=== PATIENT | male | born 1935 | race Caucasian/White ===

== ENCOUNTER 2016-09-21 16:55 | Inpatient (IN) | payer OTHER ==
[~2016-09-21] VITALS: Ht 188 cm; Wt 138.3 kg
--- NOTE | ~2016-09-21 | HC ---
[facility] [place] [address] CONSULTATION Name: CLARISSA JUARES Room #: 445-P ADM IN M.R.#: [id number] Admission: 09/21/16 Attend Phys: Jose Manuel Weeks MD Discharge: Date of : 35 Report #: [id number] THIS REPORT FOR: //name// CC: Shubham Weeks DATE OF SERVICE: 09/24/2016 REASON FOR CONSULTATION: Possible free air seen on chest x-ray. HISTORY OF PRESENT ILLNESS: The patient is an 81-year-old who was admitted for weakness. The patient was sent to the hospital from Dr. Sam's office. He has been noticed to have increased confusion. His took him in because of that, he does have a history of dementia. During the hospitalization, the patient was evaluated and had a chest x-ray performed. The patient had chest x-ray today, it was noted to have possibility of free air on to the right diaphragm. Stat consultation was obtained. As I was coming in, the patient also underwent CT scan. The CT scan report came back with the patient having large colonic air. There was no free air identified. The patient is kind of a poor historian. He is not really hungry. Denies any abdominal pain. PHYSICAL EXAMINATION: GENERAL: The patient is awake, but he mostly keeps his eyes closed. ABDOMEN: Obese and moderately distended. He is soft and nontender. Bowel sounds are present. No guarding or rigidity. No rebound. LABORATORY DATA: Shows normal white count. The patient's CT was reviewed. I agree with the radiologist, distended colon. IMPRESSION AND PLAN: The patient is an 81-year-old with a confusional state. He has a normal white count. His liver function is slightly elevated. The patient had a chest x-ray today that suggested possible free air. I was consulted on stat basis. His CT actually shows distended colon without free air. In comparison to prior CT scan, his colonic distention does not appear to be much different. Probably chronic aerophagia and distention. He does not have any acute abdomen on exam. RECOMMENDATION: The patient is on Pradaxa, and just in case I would go ahead and hold the Pradaxa for tonight. Also keep him n.p.o. on IV fluid. Likely that can be restarted tomorrow. We will follow up and reexamine him. Reglan is ordered and Dulcolax suppository is also ordered get some of his air out. By: 1243 Marcos Mo MD /nt
--- NOTE | ~2016-09-21 | HC ---
[facility] [place] [address] CONSULTATION Name: CLARISSA JUARES Room #: 445-P ADM IN M.R.#: [id number] Admission: 09/21/16 Attend Phys: Jose Manuel Weeks MD Discharge: Date of : 35 Report #: [id number] THIS REPORT FOR: //name// CC: Shubham Weeks HISTORY OF PRESENT ILLNESS: The patient is an 81-year-old male well known to myself. I am asked by Dr. Logan to see the patient. He has a history of permanent atrial fibrillation and apparently was hospitalized last week with some progressive weakness and confusion, but has had some worsening dementia. Unfortunately, he decided to stop all of his medications some weeks ago is my understanding from discussion with Dr. Logna. It looks like now on CAT scan because of a mental status change or at least a worsening condition, there is evidence now of perhaps some embolic issues, and this is actually an MRI, which shows tiny cerebral infarcts consistent with small infarcts due to hypotension or emboli. This well could be due to the AFib and no anticoagulation. He recognizes me in bed; however, believes it is 1972 today and is doing some cognitive issues with speech therapy, he can do multiplications but cannot do pluses. His cardiovascular status appears to be stable. He is in rate-controlled AFib. Blood pressures are stable. He denies chest pain or anginal complaints. He has had some issues with hip and buttock cellulitis most recently and stable coronary artery disease with a remote coronary stent placed to the LAD in 1997, and mild ischemic cardiomyopathy. There have been some mild intermittent heart failure issues, but nothing recent. HOME MEDICATIONS: Had been Pradaxa, Lasix, atenolol 50 b.i.d., simvastatin 40, omeprazole 20. I had stopped krill oil and aspirin on the last visit, which was January of last year. His lipids have been favorable. PAST MEDICAL HISTORY: Positive for coronary artery disease, permanent AFib, anticoagulation. He had been off for some time due to a right groin spontaneous hematoma and esophageal hematomas but had been restarted on the lower dose or on the Pradaxa without issue, peripheral neuropathy, DJD, hypertension, hypercholesterolemia and a colon resection. ALLERGIES: No known drug allergies. REVIEW OF SYSTEMS: Not very helpful here as he is not completely oriented. FAMILY HISTORY: Father did have an infarct at 56 and mother at 50 from cancer. LABORATORY DATA: Sodium 141, potassium 3.7, creatinine 1.0. Total bilirubin 2.4. Troponins were negative on admission. H and H 16 and 48 with a white count 9.7 and platelets 172. [address] [address] CONSULTATION Name: CLARISSA JUARES Room #: 445-P [facility] IN M.R.#: [id number] Admission: 09/21/16 Attend Phys: Jose Manuel Weeks MD Discharge: Date of : 35 Report #: [id number] PHYSICAL EXAMINATION: VITAL SIGNS: Pulses 90s and irregular and blood pressure 136/78. HEENT: Eyes reveal xanthelasmas. Pharynx is clear. NECK: Preserved upstrokes without JVD or bruits. LUNGS: Clear. CARDIOVASCULAR: Irregularly irregular S1, S2. Holosystolic murmur is noted. ABDOMEN: Soft. No HSM or abdominal bruit. EXTREMITIES: There is 1+ edema with venous stasis changes. MUSCULOSKELETAL: Generalized arthritic changes, valgus deformity of the knees. I did not ambulate him. NEUROLOGIC: Nonfocal. Appears more of a confusional issue. He seems to be moving extremities and following some commands, although he does believe as I said 1972. DIAGNOSTIC DATA: Echo Doppler shows LV function to be moderately diminished globally 30%, this has worsened, not clear of the etiology of that. ASSESSMENT: 1. Looks like small embolic or cerebrovascular accident with evidence for small embolic lesions noted. 2. Permanent atrial fibrillation, stopped anticoagulation. 3. Coronary artery disease, stable. 4. Moderate ischemic idiopathic cardiomyopathy, it has been worsening, but no overt heart failure. 5. Peripheral neuropathy. 6. Degenerative joint disease. 7. Obesity. RECOMMENDATIONS AND PLAN: His cardiovascular status is with LV dysfunction; however, he has inability to comprehend exactly the ramification of taking no medications. His is not around. We will place him on fluid restriction; with his LV dysfunction, it will be of some benefit, and anticoagulate here if he is agreeable with this. We would like to discuss the above with Dr. Logan. In my opinion, he should be back on anticoagulation particularly on the fact that he has had what appears to be an embolic event here. Would consider the addition of an ARB, perhaps 50 mg of losartan with his LV dysfunction. Continue with Lasix. We will get more aggressive and go with 40 mg of Lasix daily and add 50 mg of losartan. He is restarted on Pradaxa 150 b.i.d., and I agree with that. We will follow with you. Thank you for allowing me to assist in the care of this patient. I would be interested to discuss the above with his when she does return. By: 1003 23 Devonte Mar MD, FACC /nt
--- NOTE | ~2016-09-21 | D ---
[facility] [place] [address] DISCHARGE SUMMARY Name: CLARISSA JUARES Jd Room #: 445-P [facility]#: [id number] Admission: 09/21/16 Attend Phys: Jose Manuel Weeks MD Discharge: 09/28/16 Date of : 35 Report #: [id number] THIS REPORT FOR: //name// CC: Shubham Weeks FINAL DIAGNOSES: 1. Acute cerebrovascular accident. 2. Cerebrovascular disease. 3. Atrial fibrillation. 4. Cardiomyopathy. 5. Acute encephalopathy due to acute cerebrovascular accident. HOSPITAL COURSE: The patient was admitted from weakness. Initially, there was concern of infection, blood cultures were negative. A CT scan through the emergency room was negative. However, his confusion did not clear. We had initial plans to transfer to a [facility] facility; however, additional workup was indicated, an MRI of the brain revealed remote stroke consistent with cerebrovascular disease, however, there were areas described as "tiny infarcts," scattered which could be consistent with an embolic event related to his underlying atrial fibrillation. The cardiology service followed him, but ultimately decision was made medical treatment. It appeared by reports he had stopped his medication at home several weeks ago. 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 PHYSICAL EXAMINATION: GENERAL: On the day of discharge of the , he was awake and alert, up in the chair. VITAL SIGNS: Stable. LUNGS: Clear. HEART: Regular. ABDOMEN: Soft, normoactive bowel sounds. EXTREMITIES: Showed just trace edema. DISPOSITION: He is being transferred to [facility]. I will refer him to Dr. Tinsley who is a ammonia worker to manage his rehab, signed his transfer medications, he will then follow up with Dr. Walton in 1 month. <ELECTRONICALLY SIGNED> By: David Logan MD 09/29/16 0913 1059 1213 David Logan MD /nt
--- NOTE | ~2016-09-21 | H ---
[facility] [place] [address] HISTORY AND PHYSICAL Name: CLARISSA JUARES Room #: 445-P [facility] IN ..#: [id number] Admission: 09/21/16 Attend Phys: Jose Manuel Weeks MD Discharge: Date of : 35 Report #: [id number] THIS REPORT FOR: //name// CC: Shubham Weeks DATE OF SERVICE: 09/21/2016 CHIEF COMPLAINT: Weakness. HISTORY OF PRESENT ILLNESS: The patient is an 81-year-old gentleman who was admitted to the Emergency Room from the office with weakness. All the history is obtained by reviewing electronic record, he is awake and alert, but pleasantly confused and said he has been feeling fine, is not sure why he is here. His took him to the office yesterday with about 4 days of increasing confusion. She also reported general weakness, while in the office, under assessment he was too weak to get up from the exam stable and EMS was called me and he was taken to the Emergency Room. So far, workup has been relatively unremarkable. PAST MEDICAL HISTORY: Colon cancer treated 1991, hypertension, remote history of myocardial infarction 1993, atrial fibrillation. He apparently been on anticoagulation with Pradaxa but discontinued due to report of an esophageal ulcer 3 weeks ago. FAMILY HISTORY: Noncontributory. SOCIAL HISTORY: He is , lives with his . No known chronic alcohol or tobacco use. ALLERGIES: None. MEDICATIONS: Reports that he was on Protonix, aspirin, Zocor, atenolol, Lactobacillus, but with his reported that he stopped all his medicines about 3 weeks ago. REVIEW OF SYSTEMS: He denies headache, chest pain, shortness of breath, abdominal pain, fever, chills, nausea, vomiting, diarrhea, constipation, dysuria, syncope. OBJECTIVE: VITAL SIGNS: Temperature 36.4, pulse 80, respirations 18, blood pressure 179/96, O2 sat 97% on room air. GENERAL: He is awake and alert, lying in bed, in no distress. LUNGS: Clear with no wheezing. HEART: Irregular. No murmur. [facility] [address] [place] [address] HISTORY AND PHYSICAL Name: CLARISSA JUARES Room #: 445-P [facility] IN [facility]#: [id number] Admission: 09/21/16 Attend Phys: Jose Manuel Weeks MD Discharge: Date of : 35 Report #: [id number] ABDOMEN: Soft, normoactive bowel sounds, no palpable masses, nontender. EXTREMITIES: There is 2+ lower extremity edema, left greater than right. There is some faint pink pale areas, but really no major red open wound or erythema. NEUROLOGIC: Cranial nerves intact. He recognizes he is in the hospital. Global strength about 3/5 throughout. Laboratory and x-ray, CT data were reviewed electronically. ASSESSMENT: 1. Altered mental status. 2. Generalized weakness. 3. Atrial fibrillation. 4. Lower extremity edema. PLAN: He has been ruled out for stroke, cardiac, myocardial infraction, pneumonia and DVT. He does have atrial fibrillation, but stopped all his medications so I have to clarify the status there, but he needs atenolol at least for now and I will resume Lovenox for DVT prophylaxis, therapy referral have been made and we may need to look into a alf rehabilitation. <ELECTRONICALLY SIGNED> By: David Logan MD 09/22/16 1257 0847 0924 David Logan MD /nt
--- NOTE | ~2016-09-21 | D ---
[facility] [place] [address] DISCHARGE SUMMARY Name: CLARISSA JUARES Room #: 445-P [facility] IN ..#: [id number] Admission: 09/21/16 Attend Phys: Jose Manuel Weeks MD Discharge: Date of : 35 Report #: [id number] THIS REPORT FOR: //name// CC: Shubham Weeks FINAL DIAGNOSES: 1. Atrial fibrillation. 2. Lower extremity weakness. 3. Senile debility. 4. Lymphedema. 5. Senile dementia. HOSPITAL COURSE: The patient was admitted from home with weakness. Working diagnosis was infection; however, cultures were negative and urinary tract infection was ruled out. After assessment in reviewing the history, it appears that there is a cognitive dysfunction consistent with dementia, leading to debility and generalized weakness. His could no longer care for him at home, and plans were made for custodial. He was then stopped his home medications previously for unclear reasons, it appeared he was being treated for atrial fibrillation with atenolol and Pradaxa in the past. These medications were continued. PHYSICAL EXAMINATION: VITAL SIGNS: On the day of discharge, his temperature was 36.9, pulse 88, respirations 19, blood pressure 145/84, O2 sat 95% on room air. GENERAL: He was resting in bed, pleasantly confused. LUNGS: Clear. HEART: Irregular. ABDOMEN: Soft and normoactive bowel sounds. EXTREMITIES: 2+ edema, left greater than right. Previous Doppler ultrasound on the legs was negative for DVT. DISPOSITION: He is being transferred to [facility]. I will follow his stay there. DIET AND ACTIVITY: As tolerated. PT, OT, and ST. DISCHARGE MEDICINES: Are atenolol 50 mg, Pradaxa 150 mg b.i.d., and Tylenol. By: 0827 1033 Thomas Kong MD /nt
--- NOTE | ~2016-09-21 | 2DMMODE ---
[facility] [address] [place] [address] 2 D/M-MODE ECHOCARDIOGRAM Name: CLARISSA JUARES Room #: 445-P [facility] IN ..#: [id number] Admission: 09/21/16 Attend Phys: Cecilia Garcia Discharge: Date of : 35 Date of Service: 09/25/16 1507 Report #: [id number] THIS REPORT FOR: //name// APPROVED REPORT Study performed: 09/25/2016 11:12:32 EXAM: Comprehensive 2D, Doppler, and color-flow Echocardiogram Patient Location: Bedside Room #: [facility] Other Information Study Quality: Technically Difficult Indications Atrial Fibrillation CAD Echo Enhancing Agent Indication: Endocardial border delineation Agent(s) / Amount(s) Used: Definity 2 cc 2D Dimensions RVDd: 41.47 mm LVEF(%): 29.28 (>50%) IVSd: 12.88 (7-11mm) LVOT Diam: 26.87 (18-24mm) LVDd: 66.14 mm PWd: 12.84 (7-11mm) Ascending Ao: 41.35 (22-36mm) LVDs: 56.82 (25-40mm) Aortic Root: 42.42 mm IVC: 25.00 mm Boothe's LVEF: 29.28 % Volumes Left Atrial Volume (Systole) Single Plane 4CH: 166.97 mL Single Plane 2CH: 104.61 mL LA ESV Index: 55.00 mL/m2 Aortic Valve AoV Peak Mert.: 1.03 m/s AO Peak Gr.: 4.27 mmHg LVOT Max P.27 mmHg LVOT Max V: 0.75 m/s REMI Vmax: 4.13 cm2 Mitral Valve MV Decel. Time: 194.83 ms [facility] [address] / ?.?? [place] [address] 2 D/M-MODE ECHOCARDIOGRAM Name: CLARISSA JUARES Jd Room #: 445-P [facility] IN ..#: [id number] Admission: 09/21/16 Attend Phys: Cecilia Garcia Discharge: Date of : 35 Date of Service: 09/25/16 1507 Report #: [id number] E Max Mert.: 0.72 m/s Pulmonary Valve PV Peak Mert.: 0.74 m/s PV Peak Gr.: 2.17 mmHg Tricuspid Valve TR Peak Mert.: 3.00 m/s RAP Estimate: 15.00 mmHg TR Peak Gr.: 35.90 mmHg Left Ventricle Left ventricle is dilated. Mild concentric left ventricular hypertrophy. Left ventricular systolic function is moderately to severely reduced. LVEF is 30%. Unable to evaluate LV diastolic function due to atrial fibrillation. Right Ventricle Right ventricle is dilated. Right ventricle appears hypokinetic. Atria Left atrium is dilated. Right atrium is dilated. Aortic Valve The aortic valve is normal in structure. No aortic regurgitation is present. There is no aortic valvular stenosis. Mitral Valve The mitral valve is normal in structure. Trace mitral regurgitation. No evidence of mitral valve stenosis. Tricuspid Valve The tricuspid valve is normal in structure. Mild tricuspid regurgitation. Pulmonic Valve Pulmonic valve is not well visualized. There is no pulmonic valvular regurgitation. Great Vessels Aortic root is dilated. IVC is dilated and collapses <50% with inspiration. <Conclusion> Left ventricle is dilated. LVEF is 30% with multiple wall motion abnormalities. Unable to evaluate LV diastolic function due to atrial [facility] [address] [place] [address] 2 D/M-MODE ECHOCARDIOGRAM Name: CLARISSA JUARES Room #: 445-P [facility].#: [id number] Admission: 09/21/16 Attend Phys: Cecilia Garcia Discharge: Date of : 35 Date of Service: 09/25/16 1507 Report #: [id number] fibrillation. Right ventricle is dilated. Right ventricle appears hypokinetic. Left atrium is dilated. Right atrium is dilated. The aortic valve is normal in structure. The mitral valve is normal in structure. Trace mitral regurgitation. The tricuspid valve is normal in structure. Mild tricuspid regurgitation. Pulmonic valve is not well visualized. Aortic root is dilated. <ELECTRONICALLY SIGNED> By: Vadim Salazar MD 09/25/16 1507 1507 1507 Vadim Salazar MD /INF
--- NOTE | ~2016-09-21 | EKG ---
[address] [facility] [place] [address] ELECTROCARDIOGRAM REPORT Name: BLANQUITA,CLARISSA Jd Room #: 445-P ADM IN M.R.#: [id number] Admission: 09/21/16 Attend Phys: Jose Manuel Weeks MD Discharge: Date of : 35 Report #: [id number] THIS REPORT FOR: //name// [facility] ED Test Date: 2016-09-21 Test Time: 17:03:24 Pat Name: CLARISSA JUARES Department: Room: [facility] Gender: M Women'S Studies Professor: MZOOK : 1935 Requested By: April Castro Order Number: [id number] MD: Kelvin Mack Measurements Intervals [place] Rate: 104 P: MI: QRS: -32 QRSD: 109 T: 48 QT: 349 QTc: 459 Interpretive Statements Atrial fibrillation Left ventricular hypertrophy Poor R wave progression Compared to ECG 05/27/2015 16:47:27 No significant change was found Electronically Signed On 09-22-2016 8:11:52 CDT by Kelvin Mack [email or web address] <ELECTRONICALLY SIGNED> By: Kelvin Mack MD, [facility] 09/22/16 08 02 02 Kelvin Mack MD, [facility] /EPI
--- NOTE | ~2016-09-21 | HC ---
[facility] [place] [address] CONSULTATION Name: CLARISSA JUARES Room #: 445-P [facility] IN ..#: [id number] Admission: 09/21/16 Attend Phys: Jose Manuel Weeks MD Discharge: 09/28/16 Date of : 35 Report #: [id number] THIS REPORT FOR: //name// CC: Shubham Weeks DATE OF SERVICE: 09/27/2016 NEUROBEHAVIORAL STATUS EXAM AGE: 81. ATTENDING PHYSICIAN: Shubham Walton M.D. DIAMOND CLEANER: Dennis Palafox, PhD CLINICAL PRESENTATION: The patient is an 81-year-old male admitted to [facility] for evaluation and treatment of altered mental status. He has a past medical history that includes colon cancer, hypertension, remote myocardial infarction, atrial fibrillation and esophageal ulcer. MRI revealed atrophy with tiny bilateral cerebral infarcts, they are consistent with small infarction related to hypotension or emboli. A complete description of his medical condition and history can be found in his medical record. Neuropsychological consultation was requested to provide assistance in the assessment of cognitive and emotional status and to provide recommendations and services. Prior to this most recent admission, he is reported to have been living with the assistance of his in their home. He is a college graduate. 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 He has 2 children. The patient does not report a history of treatment for anxiety or depression. He also has no history of alcohol or drug abuse. TECHNIQUES UTILIZED: Clinical interview, review of medical records, staff consultation and behavioral observation, mini mental status exam 2 standard version, clock drawing, category fluency assessment (animals) and brief abstract reasoning test. EXAMINATION FINDINGS: The patient was alert and cooperative with the assessment. He was unable to describe the reason for his hospitalization. The patient stated that he has had problems with memory. He stated that his most likely thought that he was having problems and then brought him into the hospital for assessment and treatment. There is no evidence of aphasia. His thoughts are logical and goal oriented. There is no evidence of thought [facility] [address] [place] [address] CONSULTATION Name: CLARISSA JUARES Jd Room #: 445-P [facility]#: [id number] Admission: 09/21/16 Attend Phys: Jose Manuel Weeks MD Discharge: 09/28/16 Date of : 35 Report #: [id number] disorder. He does not present with auditory or visual hallucinations. The patient lacks insight into his deficits. He does not report problems with sleep, appetite or general cognitive function. He also denies difficulty from anxiety or depression. His performance on the MMSE 2 brief version was extremely low with a raw score of 6 of 16. He was 3/3 for initial registration, 1/5 for orientation to time and 2/[address]. He was 0/3 for immediate recall of 3 items after a brief time delay and distraction. His performance on the MMSE 2 standard version is extremely low with a raw score of 14 of 30. He was 1/5 for serial sevens, 2/2 for naming, 1/1 for repetition, 3/3 for auditory comprehension. He could read and follow single command. The patient was unable to write a sentence. He is also unable to copy a simple geometric design. The patient was unable to draw a clock, place the numbers or set the hands at a designated time. His response to category fluency was a raw score of 6, which is extremely low. Brief abstract reasoning was satisfactory for basic content. DIAGNOSTIC IMPRESSION: Major neurocognitive disorder (dementia), unspecified, without behavior disorder -- extent to be determined, likely moderate to severe. RECOMMENDATIONS: The patient is presenting with severe deficits in memory, concentration and attention and higher level executive functioning. Deficits in visual spatial organization and construction are also noted. At this time, he will require 24-hour care that includes supervision in the management of medication, nutrition and finances. A followup neuropsychological evaluation as an outpatient upon resolution of the delirium will help clarify the extent of neurocognitive deficits. The treatment program for neurocognitive deficits is indicated. Consider the use of medication to support memory. Environmental structure to maintain safety is indicated. Thank you very much for allowing me to provide the consultation on this patient. <ELECTRONICALLY SIGNED> By: Dennis Palafox, PhD 09/30/16 1515 1856 0135 Dennis Palafox, PhD /nt
[2016-09-21 16:55] VITALS: BP 132/87
[~2016-09-21 16:55] MED LIST: ANCEF 1GM1 GM/50 M1 IVPB; ASPIRIN EC81 M1 PO; ATENOLOL 25MG T25 M1 PO; ATENOLOL 50 MG50 M1 PO; B12INJ IM; BENICAR20 MG PO; COUMADIN 4 MG TA4 M1 PO; DEXAMETHASONE 22 M1; ENOXAPARIN40 MG/0.1 SUBQ; FLUCONAZOLE PO; FUROSEMIDE 40 M40 M1 PO; HYDROCODON-ACE1 EAC5 PO; HYDROCODONE-AP1 EAC6 PO; LOTRISONE CREAM15 GM TP; METOCLOPRAMIDE PO; NEURONTIN 300300 M1 PO; NEURONTIN 300M300 M2 PO; NIASPAN ER 101000 M1 PO; OMACOR1 G1 PO; PACERONE 200 M200 M1 PO; POTASSIUM20 PO; PRILOSEC 20 MG20 MG PO; PROBIOTIC1 EAC1 PO; PROTONIX40 M1 PO; SIMVASTATIN40 MG PO; SODIUM CHLORIDE50 M4 IV; TOPROL XL100 MG PO; ZOFRAN2 MG/1 ML IV PUSH
[2016-09-21 17:16] LABS: HEMATOCRIT 48.6 % (42.0-52.0); MCH 30.1 pg (26.0-34.0); MCV 91.2 fL (80.0-100.0); PLATELET COUNT 189 thou/uL (150-400); RBC 5.33 mil/uL (4.50-6.00); WBC 7.5 thou/uL (4.0-11.0)
[2016-09-21 17:27] LABS: CALCIUM 9.5 mg/dL (8.5-10.1); CREATININE 0.9 mg/dL (0.7-1.3); POTASSIUM 4.4 mmol/L (3.5-5.1)
[2016-09-21 17:30] LABS: MANUAL DIFF YES
[2016-09-21 17:54] LABS: ABSOLUTE NEUTROPHILS 5.4 thou/uL (1.4-8.2); TOTAL CELL COUNT 100
[2016-09-21 18:34] LABS: URINE BILIRUBIN 2+ (Negative); URINE BLOOD NEGATIVE (Negative); URINE COLOR YELLOW; URINE GLUCOSE-RANDOM* NEGATIVE (Negative); URINE KETONES TRACE (Negative); URINE NITRITE NEGATIVE (Negative); URINE PROTEIN (DIPSTICK) TRACE (Negative); URINE SPECIFIC GRAVITY 1.025 (1.003-1.035)
[2016-09-21 18:38] LABS: ICTOTEST (BILI CONFIRMATORY) Negative (Negative)
[2016-09-21 19:41] VITALS: BP 159/82
[2016-09-21 20:10] VITALS: BP 144/87
[2016-09-22 05:09] VITALS: BP 178/96
[2016-09-22 05:43] LABS: HEMATOCRIT 47.1 % (42.0-52.0); HEMOGLOBIN 15.7 gm/dL (14.0-18.0); MCH 30.5 pg (26.0-34.0); MCHC 33.3 g/dL (28.0-37.0); MCV 91.4 fL (80.0-100.0); RBC 5.15 mil/uL (4.50-6.00); RDW 15.8 % (10.5-14.5); WBC 5.8 thou/uL (4.0-11.0)
[2016-09-22 05:54] LABS: CALCIUM 9.3 mg/dL (8.5-10.1); CREATININE 0.9 mg/dL (0.7-1.3); POTASSIUM 4.1 mmol/L (3.5-5.1)
[2016-09-22 08:00] VITALS: BP 153/105
[2016-09-22 16:00] VITALS: BP 99/75
[2016-09-22 19:44] VITALS: BP 97/48
[2016-09-23 05:35] VITALS: BP 142/93
[2016-09-23 08:27] VITALS: BP 136/100
[2016-09-23 16:29] VITALS: BP 94/65
[2016-09-23 19:40] VITALS: BP 114/71
[2016-09-24 05:08] VITALS: BP 145/84
[2016-09-24 08:00] VITALS: BP 142/90
[2016-09-24] MEDS ORDERED: PRADAXA150 MG PO (08:22)
[2016-09-24] MEDS ORDERED: ACETAMINOPHEN325 M1 PO (08:23)
[2016-09-24] MEDS ORDERED: ATENOLOL 50MG T50 MG PO (08:23)
[2016-09-24] MEDS ORDERED: LASIX 20 MG TAB20 MG PO (08:23)
[2016-09-24 15:45] VITALS: BP 121/73
[2016-09-24 17:28] LABS: HEMATOCRIT 48.7 % (42.0-52.0); HEMOGLOBIN 16.4 gm/dL (14.0-18.0); MCH 31.1 pg (26.0-34.0); MCHC 33.8 g/dL (28.0-37.0); RBC 5.3 mil/uL (4.50-6.00); RDW 15.9 % (10.5-14.5); WBC 10.8 thou/uL (4.0-11.0)
[2016-09-24 17:50] LABS: CALCIUM 9.2 mg/dL (8.5-10.1); CREATININE 0.9 mg/dL (0.7-1.3); POTASSIUM 3.7 mmol/L (3.5-5.1)
[2016-09-24 19:02] LABS: ALBUMIN 3.2 g/dL (3.4-5.0); DIRECT BILIRUBIN 0.8 mg/dL (<0.1-0.3); TOTAL BILIRUBIN 2.5 mg/dL (<0.1-1.0); TOTAL PROTEIN 7.1 g/dL (6.4-8.2)
[2016-09-24 20:22] VITALS: BP 128/84
[2016-09-25 03:38] VITALS: BP 143/82
[2016-09-25 04:58] LABS: HEMOGLOBIN 15.8 gm/dL (14.0-18.0); MCH 30.5 pg (26.0-34.0); MCHC 32.9 g/dL (28.0-37.0); MCV 92.8 fL (80.0-100.0); PLATELET COUNT 157 thou/uL (150-400); RBC 5.18 mil/uL (4.50-6.00); RDW 16.2 % (10.5-14.5); WBC 9.9 thou/uL (4.0-11.0)
[2016-09-25 05:03] LABS: MANUAL DIFF YES
[2016-09-25 05:05] LABS: CREATININE 0.8 mg/dL (0.7-1.3); POTASSIUM 3.4 mmol/L (3.5-5.1)
[2016-09-25 05:38] LABS: ABSOLUTE NEUTROPHILS 7.2 thou/uL (1.4-8.2); ANISOCYTOSIS 1+; LARGE PLATELETS OCCASIONAL; TOTAL CELL COUNT 100
[2016-09-25 09:06] VITALS: BP 135/89
[2016-09-25 17:25] VITALS: BP 139/96
[2016-09-25 19:59] VITALS: BP 136/81
[2016-09-26 04:19] VITALS: BP 129/84
[2016-09-26 05:26] LABS: HEMATOCRIT 48.8 % (42.0-52.0); MCH 30.4 pg (26.0-34.0); MCHC 32.9 g/dL (28.0-37.0); MCV 92.3 fL (80.0-100.0); PLATELET COUNT 172 thou/uL (150-400); RBC 5.28 mil/uL (4.50-6.00); RDW 15.6 % (10.5-14.5); WBC 9.7 thou/uL (4.0-11.0)
[2016-09-26 05:30] LABS: MANUAL DIFF YES
[2016-09-26 05:40] LABS: ALBUMIN 2.9 g/dL (3.4-5.0); CALCIUM 9.2 mg/dL (8.5-10.1); POTASSIUM 3.7 mmol/L (3.5-5.1); TOTAL BILIRUBIN 2.4 mg/dL (<0.1-1.0); TOTAL PROTEIN 7.2 g/dL (6.4-8.2)
[2016-09-26 06:15] LABS: ABSOLUTE NEUTROPHILS 7.4 thou/uL (1.4-8.2); ATYPICAL LYMPHS 1 %; LARGE PLATELETS RARE; TOTAL CELL COUNT 100
[2016-09-26 08:10] VITALS: BP 135/81
[2016-09-26 12:01] LABS: CHOLESTEROL 126 mg/dL (<200); HDL CHOLESTEROL 31 mg/dL (>40); LDL CHOLESTEROL 83 mg/dL (<100); TC:HDL 4.1 Ratio (Not establshd); TRIGLYCERIDE 62 mg/dL (<150); VLDL 12 mg/dL (<40)
[2016-09-26 16:51] VITALS: BP 131/78
[2016-09-26 17:34] LABS: URINE BILIRUBIN 1+ (Negative); URINE BLOOD 1+ (Negative); URINE COLOR BROWN; URINE GLUCOSE-RANDOM* NEGATIVE (Negative); URINE KETONES NEGATIVE (Negative); URINE LEUKOCYTES-REFLEX NEGATIVE (Negative); URINE PROTEIN (DIPSTICK) TRACE (Negative); URINE SPECIFIC GRAVITY 1.025 (1.003-1.035)
[2016-09-26 17:40] LABS: ICTOTEST (BILI CONFIRMATORY) Positive (Negative)
[2016-09-26 17:52] LABS: SQUAMOUS 0-3 Few /LPF (0-3)
[2016-09-26 17:53] LABS: CASTS None Seen /LPF (None Seen); CRYSTALS None Seen /LPF (None Seen); URINE RBC 3-10 Few /HPF (0-2); URINE WBC-REFLEX 0-5 Rare /HPF (0-5)
[2016-09-26 19:55] VITALS: BP 131/70
[2016-09-27 04:16] VITALS: BP 131/85
[2016-09-27 08:21] VITALS: BP 131/85
[2016-09-27 08:49] VITALS: BP 135/79
[2016-09-27 16:54] VITALS: BP 106/80
[2016-09-27 19:11] VITALS: BP 98/56
[2016-09-28 05:48] VITALS: BP 144/88
[2016-09-28] MEDS ORDERED: ASPIR 8181 MG PO (10:55)
[2016-09-28] MEDS ORDERED: LASIX 40 MG TAB40 M1 PO (10:55)
[2016-09-28] MEDS ORDERED: COZAAR 50 MG TA50 M1 PO (10:55)
[2016-09-28] MEDS ORDERED: B12INJ IM (10:55)
[2016-09-28] MEDS ORDERED: K-DUR 20 MEQ T20 MEQ PO (10:55)
[2016-09-28 11:25] VITALS: BP 118/71
== END 2016-09-28 15:10 | DRG 64 ==
LOC: ER 16:55 → EROBS 18:42 → 4S 18:42
PROVIDERS: Emergency Medicine; Internal Medicine Geriatric Medicine; Psychiatry & Neurology Neurology; Surgery
DX: I63.9 Cerebral infarction, unspecified (principal); G93.41 Metabolic encephalopathy; N39.0 Urinary tract infection, site not specified; I89.0 Lymphedema, not elsewhere classified; I10 Essential (primary) hypertension; I25.5 Ischemic cardiomyopathy; I25.10 Atherosclerotic heart disease of native coronary artery without angina pectoris; I48.2 Chronic atrial fibrillation; G62.9 Polyneuropathy, unspecified; M19.90 Unspecified osteoarthritis, unspecified site; E78.00 Pure hypercholesterolemia, unspecified; E66.9 Obesity, unspecified; F03.90 Unspecified dementia, unspecified severity, without behavioral disturbance, psychotic disturbance, mood disturbance, and anxiety; Z79.82 Long term (current) use of aspirin; Z85.038 Personal history of other malignant neoplasm of large intestine; I25.2 Old myocardial infarction; Z98.42 Cataract extraction status, left eye; Z98.41 Cataract extraction status, right eye; Z91.14 Patient's other noncompliance with medication regimen; Z79.01 Long term (current) use of anticoagulants; Z68.39 Body mass index [BMI] 39.0-39.9, adult; Z79.899 Other long term (current) drug therapy; Z80.9 Family history of malignant neoplasm, unspecified
CPT/HCPCS: 10100